=== PATIENT | male | born 1990 | race Two or more races ===

== ENCOUNTER 2024-02-14 16:15 | Inpatient (IN) | payer OTHER ==
[~2024-02-14] VITALS: Ht 180.3 cm; Wt 90.7 kg
[2024-02-14 16:19] VITALS: O2SAT 97
[2024-02-14 18:46] LABS: BASOPHILS % 0.3 % (0.0-2.0); EOSINOPHILS % 0.2 % (0.0-5.0); HEMATOCRIT. 43.4 % (42.0-52.0); HEMOGLOBIN. 14.6 g/dL (14.0-18.0); LYMPHOCYTES % 15.5 % (20.0-50.0); MEAN CORPUSCULAR HEMOGLOBIN 30.6 pg (28.0-32.0); MEAN CORPUSCULAR HGB CONC 33.6 g/dL (31.0-37.0); MEAN CORPUSCULAR VOLUME 91.2 fL (80.0-94.0); MEAN PLATELET VOLUME 9.8 fl (7.4-10.4); MONOCYTES % 7.9 % (2.0-8.0); NEUTROPHILS % 76.1 % (40.0-76.0); PLATELET 255 x1000/uL (130-400); RED BLOOD CELL COUNT 4.75 mill/uL (4.7-6.1); RED CELL DISTRIBUTION WIDTH 13.6 % (11.6-14.6); WHITE BLOOD COUNT 8.8 x1000/uL (4.5-11.0)
[2024-02-14 18:52] LABS: CHLORIDE 103 mEq/L (98-107); SODIUM 135 mEq/L (136-145)
[2024-02-14 18:53] LABS: CALCIUM 9.7 mg/dL (8.7-10.4); CARBON DIOXIDE 27 mEq/L (21-32)
[2024-02-14 18:58] LABS: CREATININE 1.4 mg/dL (0.6-1.3); GLUCOSE 111 mg/dL (70-105); UREA NITROGEN BLOOD 15 mg/dL (9-23)
[2024-02-14 18:59] LABS: PROTHROMBIN TIME 10.7 sec (9.6-11.0)
[2024-02-14 19:00] LABS: ALANINE AMINOTRANSFERASE 30 IU/L (10-49); ALBUMIN 4.8 g/dL (3.2-4.8); ASPARTATE AMINOTRANSFERASE 14 IU/L (<34)
[2024-02-14] MEDS: SODIUM CHLORIDE 0.9% 1,000 ML IV ONE ×2 (19:00→21:01)
[2024-02-14 19:01] LABS: BILIRUBIN TOTAL 0.4 mg/dL (0.1-1.0); PROTEIN TOTAL 7.4 g/dL (6.0-8.3)
[2024-02-14 19:04] LABS: TROPONIN I HIGH SENSITIVITY < 4 ng/L (3.0-53)
[2024-02-14 19:30] LABS: CLARITY URINE CLEAR (CLEAR); COLOR URINE YELLOW (YELLOW); GLUCOSE URINE NEGATIVE (NEGATIVE); KETONES URINE NEGATIVE (NEGATIVE); LEUKOCYTE ESTERASE URINE NEGATIVE (NEGATIVE); NITRITE URINE NEGATIVE (NEGATIVE); OCCULT BLOOD URINE NEGATIVE (NEGATIVE); PH URINE 6.5 (4.5-8.0); PROTEIN URINE NEGATIVE (NEGATIVE); UROBILINOGEN URINE 0.2 E.U./dL (0.2-1.0)
[2024-02-14 19:43] LABS: *AMPHETAMINES SCREEN URINE NEGATIVE (NEGATIVE); *BARBITURATES SCREEN URINE NEGATIVE (NEGATIVE); *BENZODIAZEPINES SCREEN URINE NEGATIVE (NEGATIVE)
[2024-02-14 19:44] LABS: *COCAINE SCREEN URINE NEGATIVE (NEGATIVE); METHADONE URINE SCREEN NEGATIVE (NEGATIVE)
[2024-02-14 19:45] LABS: CANNABINOID URINE SCREEN NEGATIVE (NEGATIVE); ECSTASY MDMA SCREEN URINE NEGATIVE (NEGATIVE); OPIATES URINE SCREEN NEGATIVE (NEGATIVE); PHENCYCLIDINE URINE SCREEN NEGATIVE (NEGATIVE)
[2024-02-14] MEDS: METOCLOPRAMIDE HCL 10MG/2ML VIAL IV ONE ×2 (20:00→21:41)
[2024-02-14] MEDS: DIPHENHYDRAMINE 50MG/ML VIAL IV ONE ×2 (20:00→21:41)
[2024-02-14] MEDS: KETOROLAC 15MG/ML VIAL IV ONE ×2 (20:00→21:41)
[2024-02-14] MEDS: ACETAMINOPHEN 325MG TABLET PO ONE (20:36)
[2024-02-14 21:21] LABS: ETHANOL BLOOD < 10 mg/dL (<10); LDL CHOLESTEROL 139 mg/dL (5-100)
[2024-02-14 21:23] LABS: TROPONIN I HIGH SENSITIVITY < 4 ng/L (3.0-53)
[2024-02-14] MEDS: ASPIRIN 81MG TABLET PO ONE (21:39)
[2024-02-15 00:12] LABS: TROPONIN I HIGH SENSITIVITY < 4 ng/L (3.0-53)
[2024-02-15] MEDS ORDERED: ACETAMINOPHEN 325MG TABLET PO PRN ×3 (03:30→08:45)
[2024-02-15] MEDS: ONDANSETRON HCL 4MG/2ML INJ IV PRN (04:18)
[2024-02-15] MEDS: IOHEXOL-300 100 ML BOTTLE ONE (07:44)
[2024-02-15] MEDS ORDERED: NITROGLYCERIN 0.4MG TABLET SL SL PRN (08:45)
[2024-02-15] MEDS ORDERED: MAGNESIUM/ALUMINUM HYDROXIDE/SIMETHICONE 30ML UDC PO PRN (08:45)
[2024-02-15] MEDS ORDERED: ZOLPIDEM TARTRATE 5MG TABLET PO PRN (08:45)
[2024-02-15] MEDS ORDERED: IPRATROPIUM/ALBUTEROL 0.5-3(2.5)MG/3ML NEB NEB PRN (08:45)
[2024-02-15] MEDS ORDERED: CLONIDINE 0.1MG TABLET PO PRN (08:45)
[2024-02-15] MEDS ORDERED: GUAIFENESIN 200MG/10ML SUGAR FREE UDC PO PRN (08:45)
[2024-02-15] MEDS ORDERED: ONDANSETRON HCL 4MG/2ML INJ IV PRN (08:45)
[2024-02-15] MEDS ORDERED: DOCUSATE SODIUM 100MG CAPSULE PO PRN (08:45)
[2024-02-15] MEDS: FAMOTIDINE 20MG TABLET PO SCH (09:55)
[2024-02-15] MEDS: ASPIRIN 81MG EC TABLET PO SCH (09:55)
[2024-02-15 11:44] LABS: CREATINE KINASE MB FRACTION 0.9 ng/mL (0.5-3.6)
[2024-02-15 11:46] LABS: CREATINE KINASE 185 IU/L (46-171)
[2024-02-15 12:00] VITALS: BP 125/81; PULSE 77; RESP 20; TEMP 36.50292; O2SAT 99
[2024-02-15 12:39] LABS: TROPONIN I HIGH SENSITIVITY < 4 ng/L (3.0-53)
[2024-02-15] MEDS: BUTALBITAL/ACETAMINOPHEN/CAFFEINE 50/325/40MG TABLET PO PRN (13:03)
[2024-02-15 13:36] VITALS: BP 125/81; PULSE 77; RESP 20; TEMP 36.5292
[2024-02-15 16:00] VITALS: BP 130/87; PULSE 75; RESP 18; TEMP 36.61404; O2SAT 100
[2024-02-15 20:00] VITALS: BP 125/78; PULSE 82; RESP 18; TEMP 36.72516; O2SAT 100
[2024-02-15 22:51] LABS: CREATINE KINASE MB FRACTION 0.7 ng/mL (0.5-3.6)
[2024-02-15 22:52] LABS: CREATINE KINASE 304 IU/L (46-171)
[2024-02-15 23:00] LABS: TROPONIN I HIGH SENSITIVITY < 4 ng/L (3.0-53)
[2024-02-15 23:08] LABS: HEPATITIS B SURFACE ANTIGEN NEGATIVE (Negative)
[2024-02-15 23:30] LABS: HEPATITIS C AB NON REACTIVE (Neg) (Negative)
[2024-02-16] VITALS: BP 131/79; PULSE 77; RESP 18; TEMP 36.89184; O2SAT 100
[2024-02-16 04:00] VITALS: BP 115/65; PULSE 79; RESP 19; TEMP 36.83628; O2SAT 99
[2024-02-16 05:49] LABS: CHLORIDE 107 mEq/L (98-107); POTASSIUM 3.4 mEq/L (3.5-5.1); SODIUM 140 mEq/L (136-145)
[2024-02-16 05:51] LABS: CALCIUM 9.3 mg/dL (8.7-10.4); CARBON DIOXIDE 27 mEq/L (21-32)
[2024-02-16 05:56] LABS: CREATININE 1.1 mg/dL (0.6-1.3); GLUCOSE 88 mg/dL (70-105)
[2024-02-16 05:57] LABS: UREA NITROGEN BLOOD 14 mg/dL (9-23)
[2024-02-16 05:58] LABS: ALANINE AMINOTRANSFERASE 24 IU/L (10-49); ALBUMIN 4.4 g/dL (3.2-4.8); ASPARTATE AMINOTRANSFERASE 15 IU/L (<34); PHOSPHORUS 3.5 mg/dL (2.5-4.9)
[2024-02-16 05:59] LABS: BILIRUBIN TOTAL 0.7 mg/dL (0.1-1.0); PROTEIN TOTAL 6.7 g/dL (6.0-8.3)
[2024-02-16 06:05] LABS: BASOPHILS % 0.3 % (0.0-2.0); EOSINOPHILS % 0.9 % (0.0-5.0); HEMATOCRIT. 40.4 % (42.0-52.0); HEMOGLOBIN. 13.9 g/dL (14.0-18.0); LYMPHOCYTES % 32.6 % (20.0-50.0); MEAN CORPUSCULAR HEMOGLOBIN 31.2 pg (28.0-32.0); MEAN CORPUSCULAR HGB CONC 34.3 g/dL (31.0-37.0); MEAN CORPUSCULAR VOLUME 90.8 fL (80.0-94.0); MONOCYTES % 9.2 % (2.0-8.0); PLATELET 225 x1000/uL (130-400); RED BLOOD CELL COUNT 4.45 mill/uL (4.7-6.1); RED CELL DISTRIBUTION WIDTH 13.6 % (11.6-14.6); WHITE BLOOD COUNT 7.3 x1000/uL (4.5-11.0)
[2024-02-16 08:00] VITALS: BP 134/96; PULSE 91; RESP 18; TEMP 36.28068; O2SAT 97
[2024-02-16] MEDS: KETOROLAC 15MG/ML VIAL IV PRN (11:35)
[2024-02-16 12:00] VITALS: BP 133/88; PULSE 85; RESP 18; TEMP 36.33624; O2SAT 95
[2024-02-16 16:00] VITALS: BP 114/82; PULSE 92; RESP 17; TEMP 36.3918; TEMP 36.39180; O2SAT 97
[2024-02-16] MEDS ORDERED: ATORVASTATIN CALCIUM 40MG TABLET PO SCH (21:00)
== END 2024-02-16 18:46 | disposition left against medical advice (07) | DRG 69 ==
LOC: ER 16:15 → 5WST 21:40 → 7WST 02-15 12:43
PROVIDERS: ADMIT Internal Medicine; ATTEND Internal Medicine
DX: G45.9 Transient cerebral ischemic attack, unspecified (principal); N17.0 Acute kidney failure with tubular necrosis; E87.1 Hypo-osmolality and hyponatremia; Z53.29 Procedure and treatment not carried out because of patient's decision for other reasons
CPT/HCPCS: 36415; 70496; 70498; 70551; 71045; 72141; 80053; 80061; 80305; 80320; 81003; 82550; 82553; 83036; 83721; 83735; 84100; 84484; 85025; 86705; 86850; 86900; 87340; 93005; 99291; J1200; J1885; J2405; J2765; J7030; Q9967; G0480